=== PATIENT | female | born 1995 | race Caucasian/White ===

== ENCOUNTER 2017-05-11 07:34 | Emergency (ER) | payer MEDICAID ==
[~2017-05-11] VITALS: Ht 172.7 cm; Wt 145.5 kg
[~2017-05-11 07:34] MED LIST: FLOMAX 0.40.4 MG/CAP PO; MOTRIN 600600 MG/TAB PO; NORCO 325 MG-51 TAB PO; PERCOCET 325 MG1 TA2 PO; PRILOSEC10 MG; RECLIPSEN 0.151 TAB PO; TYLENOL 500MG500 MG PO; ZANTAC 7575 MG PO; ZOFRAN 4MG T4 MG/TAB PO
[2017-05-11 07:37] VITALS: BP 120/68; TEMP 97.8
[2017-05-11] MEDS ORDERED: MIRENA52 MG IY (07:41)
[2017-05-11] MEDS ORDERED: AMOXICILLIN 50500 MG PO (07:53)
[2017-05-11] MEDS ORDERED: NORCOELIX PO (08:08)
[2017-05-11 08:38] VITALS: PULSE 91
== END 2017-05-11 08:37 | disposition home or self-care (01) ==
LOC: COL.ER 07:34
DX: J03.90 Acute tonsillitis, unspecified (principal)
CPT/HCPCS: J1100

== ENCOUNTER 2017-10-27 15:59 | Emergency (ER) | payer MEDICAID ==
[~2017-10-27] VITALS: Ht 172.7 cm; Wt 145.5 kg
[~2017-10-27 15:59] MED LIST changes: +AMOXICILLIN 50500 MG PO; +MIRENA52 MG IY; +NORCOELIX PO
[2017-10-27 16:02] VITALS: TEMP 98.5
[2017-10-27 16:38] LABS: COLLECTION METHOD CLEAN CATCH
[2017-10-27 16:44] LABS: MUCOUS Present /lpf; PH 6 (5-8); SQUAMOUS EPITHELIAL 0-2 /hpf; URINE APPEARANCE Clear; URINE BACTERIA None Seen /hpf; URINE BILIRUBIN Negative (NEGATIVE); URINE BLOOD Negative (NEGATIVE); URINE COLOR Yellow; URINE GLUCOSE Negative (NEGATIVE); URINE KETONE Negative (NEGATIVE); URINE LEUKOCYTE ESTERASE Negative (NEGATIVE); URINE NITRATE Negative (NEGATIVE); URINE PROTEIN(semi-quant) Negative (NEGATIVE); URINE RBC 0-2 /hpf; URINE UROBILINOGEN Negative (NEGATIVE)
[2017-10-27] MEDS ORDERED: MOTRIN 800800 MG/TAB PO (17:41)
[2017-10-27] MEDS ORDERED: NORCO 325 MG-51 TAB PO (17:41)
[2017-10-27 18:05] VITALS: BP 121/76; PULSE 84
== END 2017-10-27 18:00 | disposition home or self-care (01) ==
LOC: COL.ER 15:59
PROVIDERS: Emergency Medicine
DX: M54.41 Lumbago with sciatica, right side (principal); M54.17 Radiculopathy, lumbosacral region; F17.210 Nicotine dependence, cigarettes, uncomplicated; E66.9 Obesity, unspecified; Z68.42 Body mass index [BMI] 45.0-49.9, adult; V89.2XXA Person injured in unspecified motor-vehicle accident, traffic, initial encounter

== ENCOUNTER → 2017-11-21 | Outpatient (CLI) | payer MEDICAID ==
[~2017-11-21] MED LIST changes: +MOTRIN 800800 MG/TAB PO
== END ==
LOC: COL.RAD 09:00
DX: M54.16 Radiculopathy, lumbar region (principal)

== ENCOUNTER → 2018-07-17 | Outpatient (CLI) | payer MEDICAID | LOC: MHCPAIN 10:12 | DX: M47.817 Spondylosis without myelopathy or radiculopathy, lumbosacral region (principal); M54.16 Radiculopathy, lumbar region | CPT/HCPCS: J1100; Q9967 ==

== ENCOUNTER → 2018-08-19 | Outpatient (REF) ==
[2018-08-19 18:21] LABS: THYROID STIMULATING HORMONE 1.54 uIU/mL (0.465-4.680)
== END ==
LOC: ZLAB.WCH 17:07
PROVIDERS: Physician Assistant
DX: Z01.89 Encounter for other specified special examinations (principal)

== ENCOUNTER → 2018-10-16 | Outpatient (RCR) | payer MEDICAID | END | disposition home or self-care (01) | LOC: WSC → WSPT 07-28 09:30 → WSC 09-11 09:15 → WSPT 10-06 09:30 → WSC 10-13 09:30 | DX: M47.26 Other spondylosis with radiculopathy, lumbar region (principal); M47.818 Spondylosis without myelopathy or radiculopathy, sacral and sacrococcygeal region; M53.3 Sacrococcygeal disorders, not elsewhere classified; G89.29 Other chronic pain ==

== ENCOUNTER → 2018-10-22 | Outpatient (CLI) | payer MEDICAID | LOC: MHCPAIN 09:14 | DX: G89.29 Other chronic pain (principal); M47.817 Spondylosis without myelopathy or radiculopathy, lumbosacral region; M54.16 Radiculopathy, lumbar region; M53.3 Sacrococcygeal disorders, not elsewhere classified | CPT/HCPCS: G0463 ==

== ENCOUNTER 2018-10-23 08:30 | Outpatient (RCR) | payer MEDICAID | END 2018-10-24 14:55 | disposition home or self-care (01) | LOC: WSC 08:30 | DX: M47.26 Other spondylosis with radiculopathy, lumbar region (principal) ==

== ENCOUNTER 2019-06-21 22:19 | Emergency (ER) | payer MEDICAID ==
[~2019-06-21] VITALS: Wt 160.9 kg
[2019-06-21 22:31] VITALS: TEMP 98.2
[2019-06-21 23:04] LABS: COLLECTION METHOD CLEAN CATCH
[2019-06-21 23:11] LABS: BASO % 0.2 % (0.0-2.0); EOS # 0.3 (0.0-0.7); EOS % 2.6 % (0-4.0); GRAN # 7.2 (1.4-6.5); GRAN % 65.2 % (42.2-75.2); HEMOGLOBIN 11.9 g/dl (12.5-16.0); LYMPH # 2.8 (1.2-3.4); LYMPH % 25.9 % (20.0-51.0); MEAN CELL VOLUME 84 fl (80.0-100.0); MEAN CORPUSCULAR HEMOGLOBIN 28 pg (27.0-31.0); MEAN CORPUSCULAR HGB CONC 33 g/dl (33.0-37.0); MEAN PLATELET VOLUME 8.8 fl (7.4-10.4); MONO # 0.6 (0.1-0.6); MONO % 5.7 % (1.7-9.3); PH 5 (5-8); PLATELET COUNT 241 K/mm3 (130-400); RED BLOOD COUNT 4.29 M/mm3 (4.10-5.30); REDCELL DISTRIBUTION WIDTH-CV 13.3 % (11.5-14.5); SQUAMOUS EPITHELIAL 0-2 /hpf; URINE APPEARANCE Clear; URINE BACTERIA None Seen /hpf; URINE BILIRUBIN Negative (NEGATIVE); URINE BLOOD Negative (NEGATIVE); URINE COLOR Yellow; URINE GLUCOSE Negative (NEGATIVE); URINE KETONE Negative (NEGATIVE); URINE LEUKOCYTE ESTERASE Negative (NEGATIVE); URINE NITRATE Negative (NEGATIVE); URINE PROTEIN(semi-quant) Negative (NEGATIVE); URINE RBC 0-2 /hpf; URINE UROBILINOGEN Negative (NEGATIVE)
[2019-06-21 23:12] LABS: HEMATOCRIT 36.2 % (37.0-47.0)
[2019-06-21 23:25] LABS: ALBUMIN 3.9 gm/dL (3.5-5.0); BILIRUBIN,TOTAL 0.1 mg/dL (0.0-1.0); C-REACTIVE PROTEIN 2.3 mg/dL (0.0-0.9); CREATININE, serum 0.63 (0.52-1.25); POTASSIUM 3.8 mmol/L (3.4-5.0); TOTAL PROTEIN 7.3 gm/dL (6.4-8.2)
[2019-06-22] MEDS ORDERED: PHENERGAN 25 TA25 MG PO (00:40)
[2019-06-22 00:51] VITALS: BP 120/85; PULSE 81
== END 2019-06-22 00:52 | disposition home or self-care (01) ==
LOC: COL.ER 22:19
PROVIDERS: Emergency Medicine
DX: O99.511 Diseases of the respiratory system complicating pregnancy, first trimester (principal); J06.9 Acute upper respiratory infection, unspecified; O21.9 Vomiting of pregnancy, unspecified; O26.891 Other specified pregnancy related conditions, first trimester; R51 Headache; J45.909 Unspecified asthma, uncomplicated; O99.211 Obesity complicating pregnancy, first trimester; Z79.1 Long term (current) use of non-steroidal anti-inflammatories (NSAID); Z3A.01 Less than 8 weeks gestation of pregnancy
CPT/HCPCS: J2550; J3010; J7030

== ENCOUNTER 2019-07-29 06:39 | Emergency (ER) | payer MEDICAID ==
[~2019-07-29] VITALS: Ht 172.7 cm; Wt 160.5 kg
[~2019-07-29 06:39] MED LIST changes: +PHENERGAN 25 TA25 MG PO
[2019-07-29 06:55] VITALS: TEMP 98.1
[2019-07-29 07:06] LABS: COLLECTION METHOD CLEAN CATCH
[2019-07-29 07:29] LABS: PH 6 (5-8); SQUAMOUS EPITHELIAL 0-2 /hpf; URINE APPEARANCE Clear; URINE BACTERIA Rare /hpf; URINE BILIRUBIN Negative (NEGATIVE); URINE BLOOD Negative (NEGATIVE); URINE COLOR Yellow; URINE GLUCOSE Negative (NEGATIVE); URINE KETONE Negative (NEGATIVE); URINE LEUKOCYTE ESTERASE Negative (NEGATIVE); URINE NITRATE Negative (NEGATIVE); URINE PROTEIN(semi-quant) Negative (NEGATIVE); URINE RBC 0-2 /hpf; URINE UROBILINOGEN Negative (NEGATIVE)
[2019-07-29] MEDS ORDERED: CEPHALEXIN500 M1 PO (07:44)
[2019-07-29 08:10] LABS: BASO % 0.2 % (0.0-2.0); EOS # 0.2 (0.0-0.7); EOS % 1.4 % (0-4.0); GRAN % 74.3 % (42.2-75.2); HEMATOCRIT 38.3 % (37.0-47.0); HEMOGLOBIN 12.5 g/dl (12.5-16.0); LYMPH # 2.1 (1.2-3.4); LYMPH % 19.7 % (20.0-51.0); MEAN CELL VOLUME 84 fl (80.0-100.0); MEAN CORPUSCULAR HEMOGLOBIN 28 pg (27.0-31.0); MEAN CORPUSCULAR HGB CONC 33 g/dl (33.0-37.0); MEAN PLATELET VOLUME 8.3 fl (7.4-10.4); MONO # 0.4 (0.1-0.6); MONO % 3.9 % (1.7-9.3); PLATELET COUNT 230 K/mm3 (130-400); RED BLOOD COUNT 4.55 M/mm3 (4.10-5.30); REDCELL DISTRIBUTION WIDTH-CV 13.1 % (11.5-14.5)
[2019-07-29 08:34] LABS: BILIRUBIN,TOTAL 0.3 mg/dL (0.0-1.0); CREATININE, serum 0.55 (0.52-1.25); POTASSIUM 3.7 mmol/L (3.4-5.0); TOTAL PROTEIN 7.8 gm/dL (6.4-8.2)
[2019-07-29 10:05] VITALS: BP 140/82; PULSE 88
== END 2019-07-29 10:05 | disposition home or self-care (01) ==
LOC: COL.ER 06:39
PROVIDERS: Emergency Medicine
DX: O26.891 Other specified pregnancy related conditions, first trimester (principal); O99.211 Obesity complicating pregnancy, first trimester; R10.2 Pelvic and perineal pain; Z87.891 Personal history of nicotine dependence; Z3A.12 12 weeks gestation of pregnancy; Z90.49 Acquired absence of other specified parts of digestive tract; Z98.890 Other specified postprocedural states; Z68.43 Body mass index [BMI] 50.0-59.9, adult
CPT/HCPCS: J7030

== ENCOUNTER 2019-11-02 22:06 | Outpatient (CLI) | payer MEDICAID ==
[~2019-11-02] VITALS: Ht 172.7 cm; Wt 168.2 kg
[~2019-11-02 22:06] MED LIST changes: +CEPHALEXIN500 M1 PO
--- NOTE | 2019-11-02 22:15 | NUR ---
2215 G2L1 24 WEEK GEST TO LR5 WITH C/O CONTANT UPPER ABD CRAMPING RADIATING INTO SIDES WITH A PAIN SCALE 8 OUT OF 10. PT LAUGHING AND VISITING. STATES PAIN STARTED EARLIER TODAY BUT STOPPED AROUND SUPPERTIME BUT STARTED AGAIN AROUND 1999. STATES IS FEELING BETTER NOW. EFM ON. NO CONTRACTIONS PALPATED. 2239 SVE CLOSED/THICK/HIGH. ADM ASSESMENT DONE. FEELING BETTER. NO CRAMPING AT THIS TIME.
[2019-11-02 22:20] VITALS: BP 132/82; PULSE 90; TEMP 98.1
[2019-11-02] MEDS ORDERED: PROAIR HFA0.09 MG/AC IH (22:31)
[2019-11-02] MEDS ORDERED: TYLENOL 500MG500 MG PO (22:33)
[2019-11-02] MEDS ORDERED: TYLENOL W/COD1 UDTAB PO (22:35)
[2019-11-02 22:41] VITALS: BP 132/82; PULSE 90; TEMP 98.1
--- NOTE | 2019-11-02 23:00 | NUR ---
2300 ROLES NOTIFIED OF PT AND DISMISS ORDER RECIEVED. 2310 HOME WITH INSTRUCTIONS.
== END 2019-11-02 23:10 | disposition home or self-care (01) ==
LOC: LDRO 22:06
DX: O26.892 Other specified pregnancy related conditions, second trimester (principal); Z3A.26 26 weeks gestation of pregnancy

== ENCOUNTER → 2019-12-16 | Outpatient (CLI) | payer MEDICAID ==
[~2019-12-16] MED LIST changes: +GLUCOPHAGE XR500 M1 PO; +IBU600 MG PO; +INSLANT SQ; +INSULIN LI100 UNIT/1 SQ; +PROAIR HFA0.09 MG/AC IH; +PROCARDIA XL 3030 MG PO; +TUMS500 MG; +TYLENOL W/COD1 UDTAB PO
== END ==
LOC: DIA.ED 08:45
DX: O24.419 Gestational diabetes mellitus in pregnancy, unspecified control (principal)
CPT/HCPCS: G0108

== ENCOUNTER → 2019-12-24 | Outpatient (CLI) | payer MEDICAID | LOC: DIA.ED 09:30 | DX: O24.419 Gestational diabetes mellitus in pregnancy, unspecified control (principal); Z79.4 Long term (current) use of insulin | CPT/HCPCS: G0108 ==

== ENCOUNTER 2019-12-27 17:30 | Emergency (ER) | payer MEDICAID ==
[~2019-12-27] VITALS: Ht 172.7 cm; Wt 170.6 kg
[2019-12-27 17:30] VITALS: TEMP 98.1
[~2019-12-27 17:30] MED LIST changes: -GLUCOPHAGE XR500 M1 PO; -IBU600 MG PO; -INSLANT SQ; -INSULIN LI100 UNIT/1 SQ; -PROCARDIA XL 3030 MG PO; -TUMS500 MG
[2019-12-27] MEDS ORDERED: INSLANT SQ (17:36)
[2019-12-27] MEDS ORDERED: INSULIN LI100 UNIT/1 SQ (17:37)
[2019-12-27 17:46] LABS: BASO % 0.1 % (0.0-2.0); EOS % 0.3 % (0-4.0); GRAN # 5.3 (1.4-6.5); GRAN % 75.2 % (42.2-75.2); HEMOGLOBIN 11.4 g/dl (12.5-16.0); LYMPH # 1.1 (1.2-3.4); LYMPH % 16.2 % (20.0-51.0); MEAN CELL VOLUME 82 fl (80.0-100.0); MEAN CORPUSCULAR HEMOGLOBIN 26 pg (27.0-31.0); MEAN CORPUSCULAR HGB CONC 32 g/dl (33.0-37.0); MEAN PLATELET VOLUME 9.4 fl (7.4-10.4); MONO # 0.5 (0.1-0.6); MONO % 7.3 % (1.7-9.3); PLATELET COUNT 207 K/mm3 (130-400); RED BLOOD COUNT 4.38 M/mm3 (4.10-5.30); REDCELL DISTRIBUTION WIDTH-CV 14.3 % (11.5-14.5)
[2019-12-27 17:54] LABS: HEMATOCRIT 35.7 % (37.0-47.0)
[2019-12-27 17:56] LABS: ALBUMIN 3.4 gm/dL (3.5-5.0); BILIRUBIN,TOTAL 0.4 mg/dL (0.0-1.0); CREATININE, serum 0.45 (0.52-1.25); POTASSIUM 4.3 mmol/L (3.4-5.0)
[2019-12-27 19:13] LABS: COLLECTION METHOD CLEAN CATCH
[2019-12-27 19:19] LABS: MUCOUS Present /lpf; PH 6 (5-8); SQUAMOUS EPITHELIAL 0-2 /hpf; URINE APPEARANCE Clear; URINE BACTERIA Rare /hpf; URINE BILIRUBIN Negative (NEGATIVE); URINE BLOOD Negative (NEGATIVE); URINE COLOR Yellow; URINE GLUCOSE 3+ (NEGATIVE); URINE KETONE Negative (NEGATIVE); URINE LEUKOCYTE ESTERASE Negative (NEGATIVE); URINE NITRATE Negative (NEGATIVE); URINE PROTEIN(semi-quant) Negative (NEGATIVE); URINE RBC 0-2 /hpf; URINE UROBILINOGEN Negative (NEGATIVE)
[2019-12-27 19:30] VITALS: BP 135/94; PULSE 90
[2019-12-27] MEDS ORDERED: CEPHALEXIN500 M1 PO (19:36)
== END 2019-12-27 19:50 | disposition home or self-care (01) ==
LOC: COL.ER 17:30
PROVIDERS: Emergency Medicine
DX: O24.414 Gestational diabetes mellitus in pregnancy, insulin controlled (principal); Z79.4 Long term (current) use of insulin; Z3A.33 33 weeks gestation of pregnancy
CPT/HCPCS: J7030

== ENCOUNTER 2019-12-30 21:28 | Emergency (ER) | payer MEDICAID ==
[~2019-12-30] VITALS: Ht 172.7 cm; Wt 170.9 kg
[~2019-12-30 21:28] MED LIST changes: +INSLANT SQ; +INSULIN LI100 UNIT/1 SQ
[2019-12-30 21:41] VITALS: TEMP 98.7
[2019-12-30 23:19] LABS: COLLECTION METHOD CLEAN CATCH
[2019-12-30 23:24] LABS: BASO % 0.2 % (0.0-2.0); EOS % 0.2 % (0-4.0); GRAN # 5.1 (1.4-6.5); GRAN % 76.3 % (42.2-75.2); HEMATOCRIT 38.5 % (37.0-47.0); HEMOGLOBIN 12.3 g/dl (12.5-16.0); LYMPH % 15.1 % (20.0-51.0); MEAN CELL VOLUME 81 fl (80.0-100.0); MEAN CORPUSCULAR HEMOGLOBIN 26 pg (27.0-31.0); MEAN CORPUSCULAR HGB CONC 32 g/dl (33.0-37.0); MEAN PLATELET VOLUME 9.4 fl (7.4-10.4); MONO # 0.5 (0.1-0.6); MONO % 7.1 % (1.7-9.3); PLATELET COUNT 181 K/mm3 (130-400); RED BLOOD COUNT 4.74 M/mm3 (4.10-5.30); REDCELL DISTRIBUTION WIDTH-CV 14.2 % (11.5-14.5)
[2019-12-30 23:31] LABS: MUCOUS Present /lpf; PH 7 (5-8); SQUAMOUS EPITHELIAL 0-2 /hpf; URINE APPEARANCE Clear; URINE BACTERIA Many /hpf; URINE BILIRUBIN Negative (NEGATIVE); URINE BLOOD 1+ (NEGATIVE); URINE COLOR Yellow; URINE GLUCOSE Negative (NEGATIVE); URINE KETONE Trace (NEGATIVE); URINE LEUKOCYTE ESTERASE Negative (NEGATIVE); URINE NITRATE Negative (NEGATIVE); URINE PROTEIN(semi-quant) 1+ (NEGATIVE); URINE RBC 20-50 /hpf; URINE UROBILINOGEN Negative (NEGATIVE)
[2019-12-30 23:36] LABS: ALANINE AMINOTRANSFERASE 20 U/L (4-34); ALBUMIN 3.5 gm/dL (3.5-5.0); ALKALINE PHOSPHATASE 149 U/L (50-136); ANION GAP 9 mmol/L (7-16); AST,SGOT 32 U/L (15-37); BILIRUBIN,TOTAL 0.4 mg/dL (0.0-1.0); BLOOD UREA NITROGEN 7 mg/dL (7-17); CALCIUM 9.6 mg/dL (8.4-10.2); CARBON DIOXIDE 22 mmol/L (22-30); CHLORIDE 102 mmol/L (98-107); GLUCOSE 132 mg/dL (74-106); POTASSIUM 3.7 mmol/L (3.4-5.0); SODIUM 133 mmol/L (137-145); TOTAL PROTEIN 7.2 gm/dL (6.4-8.2)
[2019-12-30 23:40] LABS: ACETONE,SERUM NEGATIVE
[2019-12-31 00:47] VITALS: BP 134/100; PULSE 134
== END 2019-12-31 00:50 | disposition home or self-care (01) ==
LOC: COL.ER 21:28
PROVIDERS: Nurse Practitioner
DX: O26.893 Other specified pregnancy related conditions, third trimester (principal); R05 Cough; R50.9 Fever, unspecified; E11.9 Type 2 diabetes mellitus without complications; J45.909 Unspecified asthma, uncomplicated; Z87.891 Personal history of nicotine dependence; Z79.4 Long term (current) use of insulin; Z20.828 Contact with and (suspected) exposure to other viral communicable diseases; Z3A.34 34 weeks gestation of pregnancy
CPT/HCPCS: J2550; J7030

== ENCOUNTER → 2020-01-06 | Outpatient (CLI) | payer MEDICAID ==
[~2020-01-06] MED LIST changes: +GLUCOPHAGE XR500 M1 PO; +IBU600 MG PO; +PROCARDIA XL 3030 MG PO; +TUMS500 MG
== END ==
LOC: DIA.ED 08:45
DX: O24.419 Gestational diabetes mellitus in pregnancy, unspecified control (principal)
CPT/HCPCS: G0108

== ENCOUNTER 2020-01-27 11:38 | Inpatient (IN) | payer MEDICAID ==
[~2020-01-27] VITALS: Ht 170.2 cm; Wt 176.4 kg
[2020-01-27] VITALS (20 sets, daily range): BP systolic 132–185; BP diastolic 78–109; PULSE 64–121; TEMP 97.9–98.7
[~2020-01-27 11:38] MED LIST changes: -GLUCOPHAGE XR500 M1 PO; -IBU600 MG PO; -PROCARDIA XL 3030 MG PO; -TUMS500 MG
--- NOTE | 2020-01-27 11:40 | NUR ---
Patient ambulatory to LR2, changed into gown, FHR/TOCO monitors placed and explained. Dr. Post sent patient from office for direct admit for for a BPP of 11/17. Patient updated on plan of care and agrees. Patient denies leaking of fluid/regular contractions/vaginal bleeding/decreased movement. 1235: IV started in left hand per Jany DRAPER, blood obtained and to lab, LR infusing.
[2020-01-27] MEDS ORDERED: GLUCOPHAGE XR500 M1 PO (12:03)
[2020-01-27] MEDS ORDERED: TUMS500 MG (12:04)
--- NOTE | 2020-01-27 12:35 | NUR ---
Consents gone over and signed/assessment completed. at bedside discussing plan of care. Patient prepped for .
--- NOTE | 2020-01-27 12:55 | NUR ---
Patient off monitors and to OR. called to another delivery and on hold. Patient comfortable with spinal and prepped.
[2020-01-27 12:57] LABS: HEMOGLOBIN 11.5 g/dl (12.5-16.0); MEAN CELL VOLUME 81 fl (80.0-100.0); MEAN CORPUSCULAR HEMOGLOBIN 26 pg (27.0-31.0); MEAN CORPUSCULAR HGB CONC 33 g/dl (33.0-37.0); MEAN PLATELET VOLUME 9.4 fl (7.4-10.4); PLATELET COUNT 243 K/mm3 (130-400); RED BLOOD COUNT 4.37 M/mm3 (4.10-5.30); REDCELL DISTRIBUTION WIDTH-CV 15.7 % (11.5-14.5)
[2020-01-27 13:07] LABS: ALBUMIN 3.6 gm/dL (3.5-5.0); BILIRUBIN,TOTAL 0.5 mg/dL (0.0-1.0); CALCIUM 9.2 mg/dL (8.4-10.2); CREATININE, serum 0.54 (0.52-1.25); POTASSIUM 4.1 mmol/L (3.4-5.0); TOTAL PROTEIN 7.5 gm/dL (6.4-8.2)
[2020-01-27 13:21] LABS: HEMATOCRIT 35.3 % (37.0-47.0)
[2020-01-27 13:28] LABS: BAND 2 % (0-10); LYMPHOCYTE 11 % (20.0-51.0); METAMYELOCYTE 1 % (0-0); MYELOCYTE 1 % (0-0); NEUTROPHILS 80 % (42.0-75.2); PLATELET ESTIMATE NORMAL (NORMAL)
[2020-01-28 02:15] VITALS: BP 151/100
--- NOTE | 2020-01-28 02:15 | NUR ---
BP 154/100. Pt just back into room after visiting baby in [facility]. Encouraged to rest and will recheck BP in 1/2-1 hour
[2020-01-28 03:30] VITALS: BP 135/94; PULSE 109; TEMP 99
[2020-01-28 07:01] LABS: HEMOGLOBIN 11.4 g/dl (12.5-16.0)
[2020-01-28 08:01] VITALS: BP 148/96; PULSE 101; TEMP 97.3
[2020-01-28 11:45] VITALS: BP 137/86; PULSE 102
[2020-01-28 16:11] VITALS: BP 142/88; PULSE 76; TEMP 97.8
[2020-01-28 19:15] VITALS: BP 149/99; PULSE 90; TEMP 98.9
[2020-01-29 08:00] VITALS: BP 143/95; PULSE 105; TEMP 98.6
[2020-01-29] MEDS ORDERED: PROCARDIA XL 3030 MG PO (10:40)
[2020-01-29] MEDS ORDERED: IBU600 MG PO (10:40)
[2020-01-29] MEDS ORDERED: GLUCOPHAGE XR500 M1 PO (10:41)
[2020-01-29] MEDS ORDERED: PERCOCET 325 MG1 TA2 PO (10:41)
== END 2020-01-29 15:50 | disposition home or self-care (01) | DRG 788 ==
LOC: OB 11:38 → LDR 13:09 → OB 13:09
PROVIDERS: ADMIT Obstetrics & Gynecology
PROC: 10D00Z1 Extraction of Products of Conception, Low, Open Approach (ICD-10-PCS; principal; 2020-01-27)
DX: O34.211 Maternal care for low transverse scar from previous cesarean delivery (principal); O99.214 Obesity complicating childbirth; O99.52 Diseases of the respiratory system complicating childbirth; O24.429 Gestational diabetes mellitus in childbirth, unspecified control; J45.909 Unspecified asthma, uncomplicated; K21.9 Gastro-esophageal reflux disease without esophagitis; E66.01 Morbid (severe) obesity due to excess calories; O13.4 Gestational [pregnancy-induced] hypertension without significant proteinuria, complicating childbirth; Z3A.38 38 weeks gestation of pregnancy; Z87.442 Personal history of urinary calculi; Z37.0 Single live birth
CPT/HCPCS: J0690; J1885; J1940; J2370; J2405; J2590; J3010; J7120

== ENCOUNTER 2021-03-23 14:38 | Emergency (ER) | payer MEDICAID ==
[~2021-03-23] VITALS: Ht 172.7 cm; Wt 163.6 kg
[~2021-03-23 14:38] MED LIST changes: +GLUCOPHAGE XR500 M1 PO; +IBU600 MG PO; +PROCARDIA XL 3030 MG PO; +TUMS500 MG
[2021-03-23 16:19] LABS: COLLECTION METHOD CLEAN CATCH
[2021-03-23 16:29] LABS: MUCOUS Present /lpf; PH 6 (5-8); URINE APPEARANCE Hazy; URINE BACTERIA None Seen /hpf; URINE BILIRUBIN Negative (NEGATIVE); URINE BLOOD Negative (NEGATIVE); URINE COLOR Yellow; URINE GLUCOSE Negative (NEGATIVE); URINE KETONE Negative (NEGATIVE); URINE LEUKOCYTE ESTERASE Negative (NEGATIVE); URINE NITRATE Negative (NEGATIVE); URINE PROTEIN(semi-quant) Negative (NEGATIVE); URINE RBC 0-2 /hpf; URINE UROBILINOGEN Negative (NEGATIVE)
[2021-03-23 16:41] LABS: BASO % 0.4 % (0.0-2.0); EOS # 0.2 (0.0-0.7); GRAN # 5.2 (1.4-6.5); GRAN % 62.9 % (42.2-75.2); HEMOGLOBIN 11.8 g/dl (12.5-16.0); LYMPH # 2.4 (1.2-3.4); LYMPH % 28.2 % (20.0-51.0); MEAN CELL VOLUME 83 fl (80.0-100.0); MEAN CORPUSCULAR HEMOGLOBIN 27 pg (27.0-31.0); MEAN CORPUSCULAR HGB CONC 32 g/dl (33.0-37.0); MEAN PLATELET VOLUME 8.6 fl (7.4-10.4); MONO # 0.5 (0.1-0.6); MONO % 6.1 % (1.7-9.3); PLATELET COUNT 264 K/mm3 (130-400); RED BLOOD COUNT 4.43 M/mm3 (4.10-5.30); REDCELL DISTRIBUTION WIDTH-CV 14.3 % (11.5-14.5)
[2021-03-23 16:42] LABS: HEMATOCRIT 36.9 % (37.0-47.0)
[2021-03-23 16:55] LABS: BILIRUBIN,TOTAL 0.4 mg/dL (0.0-1.0); C-REACTIVE PROTEIN 1.1 mg/dL (0.0-0.9); CALCIUM 8.5 mg/dL (8.4-10.2); CREATININE, serum 0.76 (0.52-1.25); TOTAL PROTEIN 7.3 gm/dL (6.4-8.2)
[2021-03-23] MEDS ORDERED: CARAFATE 1GM1 G PO (19:08)
[2021-03-23 19:19] VITALS: BP 113/66; PULSE 63; TEMP 98.3
== END 2021-03-23 19:19 | disposition home or self-care (01) ==
LOC: COL.ER 14:38
PROVIDERS: Family Medicine; Nurse Practitioner
DX: R10.10 Upper abdominal pain, unspecified (principal); F17.290 Nicotine dependence, other tobacco product, uncomplicated; Z20.822 Contact with and (suspected) exposure to COVID-19; Z32.02 Encounter for pregnancy test, result negative
CPT/HCPCS: J1885; J2405; J7030; Q9967